=== PATIENT | female | born 1940 | race Caucasian/White ===

== ENCOUNTER → 2017-05-08 | Outpatient (CLI) | payer OTHER, MEDICARE ==
[~2017-05-08] VITALS: Ht 167.6 cm; Wt 73.9 kg
[~2017-05-08] MED LIST: ALEVE220 MG PO; ANTI-GAS180 MG PO; APAP500 PO; AVAPRO300 MG PO; CALCIUM 600 +1 EAC1 PO; FLONASE 0.05%50 MCG NASAL; MUCINEX TA600 MG/TA2 PO; NEPHROCAPS SOFT1 CAP PO; OMEPRAZOLE 20 M20 M1 PO; SIMVASTATIN40 MG PO
--- NOTE | ~2017-05-08 | P ---
[facility] [place] [address] PROCEDURE REPORT Name: REILLY CASTRO Room #: REG [facility]#: [id number] Admission: 05/08/17 Attend Phys: London Joseph MD Discharge: Date of : 38 Report #: [id number] THIS REPORT FOR: //name// CC: [facility] physician/PCP London Joseph PREOPERATIVE DIAGNOSIS: Pacemaker elective replacement indicator. POSTOPERATIVE DIAGNOSIS: Pacemaker elective replacement indicator. HISTORY OF PRESENT ILLNESS: The patient is a 76-year-old female with a history of complete heart block here for pacemaker generator exchange. She has a [employer] pacemaker that occasionally will develop inhibition of pacing with electrocautery. I therefore recommended temporary wire placement prior to the generator exchange. ANESTHESIA: The patient underwent MAC anesthesia with no anesthesia related complications. DESCRIPTION OF PROCEDURE: The patient underwent informed consent. We discussed the details of the procedure including the risks, which include but not limited to bleeding, infection and need for possible lead revisions. She understood these risks and is willing to proceed. As such, she is brought to the EP laboratory in a fasting and nonsedated state and prepped and draped in a sterile fashion. I then injected lidocaine to the right groin and obtained access to the right femoral vein x 1 and placed a 5-Indonesian short sheath and then placed a quadripolar catheter into the right ventricle, which had adequate pacing thresholds. Next, the patient was prepped in a standard fashion receiving IV antibiotics prior to the procedure. Next, I injected lidocaine at the prior incision site. Incision was made. A pocket was opened. While I would Bovie, there was inhibition of pacing, but the temporary wire would take over during these periods of time. The old device was disconnected and a new device was connected to the leads. They were found to be functioning normally. The device was placed in the pocket. Then, the pocket was closed in 3 layers and surgical glue was placed to the skin layer. The patient awoke neurologically and hemodynamically intact. No complications and no significant bleeding. The temporary wire and sheaths were pulled and hemostasis was obtained without incident. The explanted pacemaker was a [employer], model number is 5826, serial #[id number], originally implanted on 12/22/2008 in [place]. The newly implanted device was a [employer] model #[id number], serial #[id number]. The atrial lead was a [employer] model #1688TC, serial #[id number]. The RV lead was a [employer] model #1688TC, serial #[id number]. These leads were also implanted in 2008. The atrial lead demonstrated a P-wave of 2.7 millivolts, pacing impedance of 380 ohms and the pacing threshold 0.75 volts at 0.4 milliseconds. The RV lead showed no underlying R waves, pacing impedance of 480 ohms and the pacing threshold 1 volt at 0.4 milliseconds. The device was programmed to the DDDR 60-130 mode. [address] [address] PROCEDURE REPORT Name: YOGIAshlyREILLY [facility]: [id number] Admission: 05/08/17 Attend Phys: London Joseph MD Discharge: Date of : 38 Report #: [id number] CONCLUSIONS: 1. Successful dual-chamber pacemaker generator exchange. 2. Satisfactory atrial and ventricular pacing and sensing thresholds. 3. Satisfactory temporary pacing wire placement. By: [id number] London Joseph MD /nt
[2017-05-08 07:28] VITALS: BP 182/83
[2017-05-08 07:54] LABS: ABSOLUTE NEUTROPHILS 3.8 thou/uL (1.4-8.2); HEMATOCRIT 36.4 % (37.0-47.0); HEMOGLOBIN 12.6 gm/dL (12.0-15.0); LYMPHOCYTES 19.4 % (24.0-44.0); MCH 32.3 pg (26.0-34.0); MCHC 34.5 g/dL (28.0-37.0); MCV 93.4 fL (80.0-100.0); MONOCYTES 8.1 % (1.0-8.0); PLATELET COUNT 147 thou/uL (150-400); POLYS 67.5 % (36.0-66.0); RDW 13.2 % (10.5-14.5); WBC 5.6 thou/uL (4.0-11.0)
[2017-05-08 07:58] LABS: MANUAL DIFF NO
[2017-05-08 08:07] LABS: CALCIUM 8.9 mg/dL (8.5-10.1); CREATININE 0.9 mg/dL (0.6-1.0); POTASSIUM 4.1 mmol/L (3.5-5.1)
[2017-05-08 08:08] LABS: PROTIME 10.4 Seconds (9.3-11.4)
[2017-05-08 08:12] LABS: ALBUMIN 4.1 g/dL (3.4-5.0); TOTAL BILIRUBIN 0.5 mg/dL (<0.1-1.0); TOTAL PROTEIN 7.3 g/dL (6.4-8.2)
== END | disposition home or self-care (01) ==
LOC: CATH 05-01 12:08
PROVIDERS: Internal Medicine Cardiovascular Disease
DX: Z45.2 Encounter for adjustment and management of vascular access device (principal); I25.119 Atherosclerotic heart disease of native coronary artery with unspecified angina pectoris; I45.9 Conduction disorder, unspecified; E78.5 Hyperlipidemia, unspecified; I10 Essential (primary) hypertension; I49.5 Sick sinus syndrome; Z87.891 Personal history of nicotine dependence
CPT/HCPCS: 62110; 62900; 70005

== ENCOUNTER → 2020-02-23 | Outpatient (CLI) | payer OTHER, MEDICARE | LOC: SJCVCIMAG 01-03 09:26 | DX: Z45.018 Encounter for adjustment and management of other part of cardiac pacemaker (principal); I08.2 Rheumatic disorders of both aortic and tricuspid valves; I77.810 Thoracic aortic ectasia; I11.9 Hypertensive heart disease without heart failure; R94.31 Abnormal electrocardiogram [ECG] [EKG]; I44.2 Atrioventricular block, complete; E78.5 Hyperlipidemia, unspecified; Z79.899 Other long term (current) drug therapy; Z87.891 Personal history of nicotine dependence ==

== ENCOUNTER → 2020-06-12 | Outpatient (CLI) | payer OTHER, MEDICARE | LOC: SJCVCIMAG 07:34 | PROVIDERS: ATTEND Internal Medicine Cardiovascular Disease | DX: I49.3 Ventricular premature depolarization (principal); I35.0 Nonrheumatic aortic (valve) stenosis; I10 Essential (primary) hypertension; I44.2 Atrioventricular block, complete; I49.5 Sick sinus syndrome; E78.00 Pure hypercholesterolemia, unspecified; Z95.0 Presence of cardiac pacemaker; Z79.899 Other long term (current) drug therapy; Z87.891 Personal history of nicotine dependence ==

== ENCOUNTER → 2021-02-21 | Outpatient (CLI) | payer OTHER, MEDICARE | LOC: SJCVCIMAG 09:30 | PROVIDERS: ATTEND Internal Medicine Cardiovascular Disease | DX: I08.2 Rheumatic disorders of both aortic and tricuspid valves (principal); I11.9 Hypertensive heart disease without heart failure; I77.819 Aortic ectasia, unspecified site; I49.5 Sick sinus syndrome; E78.00 Pure hypercholesterolemia, unspecified; I44.2 Atrioventricular block, complete; I25.10 Atherosclerotic heart disease of native coronary artery without angina pectoris; E78.5 Hyperlipidemia, unspecified; Z95.0 Presence of cardiac pacemaker; Z88.2 Allergy status to sulfonamides; Z88.8 Allergy status to other drugs, medicaments and biological substances; Z79.899 Other long term (current) drug therapy; Z87.891 Personal history of nicotine dependence; Z82.49 Family history of ischemic heart disease and other diseases of the circulatory system ==

== ENCOUNTER → 2021-11-28 | Outpatient (CLI) | payer OTHER, MEDICARE | LOC: SJCVC 10:35 | PROVIDERS: ATTEND Internal Medicine Cardiovascular Disease | DX: I10 Essential (primary) hypertension (principal); I25.10 Atherosclerotic heart disease of native coronary artery without angina pectoris; E78.00 Pure hypercholesterolemia, unspecified; I49.5 Sick sinus syndrome; I08.0 Rheumatic disorders of both mitral and aortic valves; E78.5 Hyperlipidemia, unspecified; Z95.0 Presence of cardiac pacemaker; Z88.1 Allergy status to other antibiotic agents; Z88.2 Allergy status to sulfonamides; Z88.8 Allergy status to other drugs, medicaments and biological substances; Z87.891 Personal history of nicotine dependence; Z72.89 Other problems related to lifestyle; Z79.899 Other long term (current) drug therapy; Z82.49 Family history of ischemic heart disease and other diseases of the circulatory system; Z95.818 Presence of other cardiac implants and grafts ==